=== PATIENT | male | born 1995 | race Caucasian/White ===

== ENCOUNTER 2016-10-22 13:09 | Inpatient (IN) | payer BC, OTHER ==
[~2016-10-22] VITALS: Ht 172.7 cm; Wt 65.8 kg
[2016-10-22 14:00] VITALS: BP 139/86
[2016-10-22] MEDS ORDERED: diphenhydrAMINE 50 MG CAPSULE PO PRN (14:30)
[2016-10-22] MEDS ORDERED: ONDANSETRON 4 MG/2 ML VIAL IM PRN (14:30)
[2016-10-22] MEDS ORDERED: ACETAMINOPHEN 325 MG TABLET PO PRN (14:30)
[2016-10-22] MEDS ORDERED: LOPERAMIDE HCL 2 MG CAPSULE PO PRN ×2 (14:30)
[2016-10-22] MEDS ORDERED: CLONIDINE HCL 0.1 MG TABLET PO PRN (14:30)
[2016-10-22] MEDS ORDERED: LORAZEPAM 2 MG/1 ML VIAL IM PRN (14:30)
[2016-10-22] MEDS ORDERED: MIRALAX 17 GM POWD.PACK PO PRN (14:30)
[2016-10-22] MEDS ORDERED: MAGNESIUM HYDROXIDE 30 ML LIQUID UDC PO PRN (14:30)
[2016-10-22] MEDS ORDERED: DICYCLOMINE HCL 20 MG TABLET PO PRN (14:30)
[2016-10-22] MEDS ORDERED: MAG HYDROX/AL HYDROX/SIMETH 30 ML LIQUID UDC PO PRN (14:30)
[2016-10-22] MEDS ORDERED: LORAZEPAM 1 MG TABLET PO PRN ×2 (14:30)
[2016-10-22] MEDS ORDERED: ONDANSETRON ODT 4 MG TAB.RAPDIS SL PRN (14:30)
[2016-10-22] MEDS ORDERED: IBUPROFEN 400 MG TABLET PO PRN (14:30)
[2016-10-22] MEDS ORDERED: HYDROXYZINE PAMOATE 25 MG CAPSULE PO PRN (14:30)
[2016-10-22 14:57] LABS: *AMPHETAMINE, URINE NEGATIVE (NEGATIVE); *BARBITURATE, URINE NEGATIVE (NEGATIVE); *CANNABINOID, URINE NEGATIVE (NEGATIVE); *COCCAINE, URINE NEGATIVE (NEGATIVE); *OPIATE, URINE NEGATIVE (NEGATIVE); *PHENCYCLIDINE SCREEN,URINE NEGATIVE (NEGATIVE)
[2016-10-22 15:15] LABS: BASOPHILS % (AUTO) 0.6 % (0.0-2.0); EOSINOPHILS % (AUTO) 0.6 % (0.0-7.0); HEMOGLOBIN 15.2 G/DL (14.0-18.0); LYMPHOCYTES # (AUTO) 0.9 K/UL (0.8-4.8); LYMPHOCYTES % (AUTO) 24.9 % (20.5-51.5); MEAN CORPUSCULAR HEMOGLOBIN 31.9 UUG (27.0-31.0); MEAN CORPUSCULAR HGB CONC 34 g/dL (32.0-37.0); MEAN CORPUSCULAR VOLUME 94.2 FL (82.0-92.0); MONOCYTES # (AUTO) 0.4 K/UL (0.1-1.30); MONOCYTES % (AUTO) 9.5 % (0.0-11.0); NEUTROPHILS # (AUTO) 2.5 K/UL (1.8-8.9); NEUTROPHILS % (AUTO) 64.4 % (38.5-71.5); PLATELET COUNT (AUTO) 133 K/UL (150-450); RED BLOOD CELL COUNT(AUTO) 4.77 MIL/UL (4.7-6.1); RED CELL DISTRIBUTION WIDTH 12.2 % (11.5-14.5); WHITE BLOOD COUNT (AUTO) 3.8 K/UL (4.0-11.2)
[2016-10-22] MEDS ORDERED: THIAMINE HCL 200 MG/2 ML VIAL IM ONE (15:19)
[2016-10-22 15:22] LABS: ETHANOL < 3 MG/DL (0-0)
[2016-10-22 15:28] LABS: ALANINE AMINOTRANSFERASE 69 U/L (16-63); ALBUMIN 4.6 g/dL (3.4-5.0); ALKALINE PHOSPHATASE 48 U/L (50-136); AMYLASE 72 U/L (25-115); ASPARTATE AMINOTRANSFERASE 32 U/L (15-37); BILIRUBIN,TOTAL 0.7 mg/dL (0.2-1.0); CALCIUM 9.2 mg/dL (8.5-10.1); CARBON DIOXIDE 30 mmol/L (21-32); CHLORIDE 102 mmol/L (98-107); CREATININE 0.8 mg/dL (0.6-1.3); GFR 121 mL/min (>60); GLUCOSE 87 mg/dL (74-106); LIPASE 183 U/L (73-393); MAGNESIUM 2.2 mg/dL (1.8-2.4); POTASSIUM 4.1 mmol/L (3.5-5.1); SODIUM SERUM 139 mmol/L (136-145); TOTAL PROTEIN, SERUM 7.7 g/dL (6.4-8.2); UREA NITROGEN, BLOOD 15 mg/dL (7-18)
[2016-10-22 15:38] LABS: THYROID STIMULATING HORMONE 1.293 mIU/mL (0.358-3.740)
[2016-10-22 16:55] VITALS: BP 119/61
[2016-10-22 19:03] LABS: HIV-1 p24 ANTIGEN NON REACTIVE (NONREACTIVE); HIV-1/2 ANTIBODY NON REACTIVE (NONREACTIVE)
[2016-10-22 20:00] VITALS: BP 142/81
[2016-10-23] VITALS: BP 138/60
[2016-10-23 04:00] VITALS: BP 131/64
[2016-10-23 08:00] VITALS: BP 123/63
[2016-10-23] MEDS: THIAMINE HCL 100 MG TABLET PO SCH (08:58)
[2016-10-23] MEDS: MULTIVITAMINS,THERAPEUTIC TABLET PO SCH (08:59)
[2016-10-23] MEDS: FOLIC ACID 1 MG TABLET PO SCH (08:59)
[2016-10-23] MEDS ORDERED: TUBERCULIN,PURIF.PROT.DERIV. 5 TU/0.1 ML TEST ID ONE (09:00)
[2016-10-23 12:00] VITALS: BP 119/62
[2016-10-23 14:06] LABS: HCV AB <0.1 s/co ratio (0.0-0.9); HEPATITIS B CORE AB, IgM Negative (Negative); HEPATITIS B SURFACE AG Negative (Negative)
[2016-10-23 17:02] VITALS: BP 133/78
[2016-10-23 20:35] VITALS: BP 142/78
[2016-10-24 00:45] VITALS: BP 139/59
[2016-10-24 04:34] VITALS: BP 125/71
[2016-10-24 08:00] VITALS: BP 131/64
[2016-10-24 08:32] LABS: BASOPHILS # (AUTO) 0.1 K/uL (0.0-8.0); EOSINOPHILS # (AUTO) 0.1 K/uL (0.0-0.7); EOSINOPHILS % (AUTO) 1.7 % (0.0-7.0); HEMATOCRIT 42.7 % (40-50); HEMOGLOBIN 14.6 G/DL (14.0-18.0); LYMPHOCYTES # (AUTO) 2.3 K/UL (0.8-4.8); LYMPHOCYTES % (AUTO) 45.5 % (20.5-51.5); MEAN CORPUSCULAR HEMOGLOBIN 32.4 UUG (27.0-31.0); MEAN CORPUSCULAR HGB CONC 34 g/dL (32.0-37.0); MEAN CORPUSCULAR VOLUME 94.9 FL (82.0-92.0); MONOCYTES # (AUTO) 0.5 K/UL (0.1-1.30); NEUTROPHILS # (AUTO) 2.2 K/UL (1.8-8.9); NEUTROPHILS % (AUTO) 41.8 % (38.5-71.5); PLATELET COUNT (AUTO) 136 K/UL (150-450); RED CELL DISTRIBUTION WIDTH 12.4 % (11.5-14.5); WHITE BLOOD COUNT (AUTO) 5.2 K/UL (4.0-11.2)
[2016-10-24 08:48] LABS: FOLIC ACID 15.3 NG/ML (8.6-58.9)
[2016-10-24 08:54] LABS: ALBUMIN 3.9 g/dL (3.4-5.0); BILIRUBIN,DIRECT 0.1 mg/dL (0.0-0.2); BILIRUBIN,TOTAL 0.3 mg/dL (0.2-1.0); CALCIUM 8.6 mg/dL (8.5-10.1); CREATININE 0.9 mg/dL (0.6-1.3); MAGNESIUM 2.1 mg/dL (1.8-2.4); POTASSIUM 4.1 mmol/L (3.5-5.1); TOTAL PROTEIN, SERUM 6.7 g/dL (6.4-8.2)
[2016-10-24] MEDS: FOLIC ACID 1 MG TABLET PO SCH (09:06)
[2016-10-24] MEDS: MULTIVITAMINS,THERAPEUTIC TABLET PO SCH (09:06)
[2016-10-24] MEDS: THIAMINE HCL 100 MG TABLET PO SCH (09:06)
[2016-10-24 12:00] VITALS: BP 128/68
[2016-10-24 14:42] LABS: *AMPHETAMINE, URINE NEGATIVE (NEGATIVE); *BARBITURATE, URINE NEGATIVE (NEGATIVE); *CANNABINOID, URINE NEGATIVE (NEGATIVE); *COCCAINE, URINE NEGATIVE (NEGATIVE); *OPIATE, URINE NEGATIVE (NEGATIVE); *PHENCYCLIDINE SCREEN,URINE NEGATIVE (NEGATIVE)
[2016-10-24 16:00] VITALS: BP 120/60
[2016-10-24 20:12] VITALS: BP 130/68
[2016-10-25 00:31] VITALS: BP 122/79
[2016-10-25 04:13] VITALS: BP 116/59
[2016-10-25 08:10] VITALS: BP 127/62
[2016-10-25] MEDS: FOLIC ACID 1 MG TABLET PO SCH (08:31)
[2016-10-25] MEDS: THIAMINE HCL 100 MG TABLET PO SCH (08:31)
[2016-10-25] MEDS: MULTIVITAMINS,THERAPEUTIC TABLET PO SCH (08:31)
== END 2016-10-25 09:35 | disposition other institution (70) | DRG 895 ==
LOC: SRC 13:09
PROVIDERS: ADMIT Internal Medicine; ATTEND Internal Medicine
PROC: HZ2ZZZZ Detoxification Services for Substance Abuse Treatment (ICD-10-PCS; principal; 2016-10-22)
PROC: HZ41ZZZ Group Counseling for Substance Abuse Treatment, Behavioral (ICD-10-PCS; 2016-10-23)
PROC: HZ31ZZZ Individual Counseling for Substance Abuse Treatment, Behavioral (ICD-10-PCS; 2016-10-23)
DX: F10.20 Alcohol dependence, uncomplicated (principal); K70.10 Alcoholic hepatitis without ascites; Y90.9 Presence of alcohol in blood, level not specified; Z81.1 Family history of alcohol abuse and dependence; Z82.49 Family history of ischemic heart disease and other diseases of the circulatory system; F17.210 Nicotine dependence, cigarettes, uncomplicated; E55.9 Vitamin D deficiency, unspecified; D75.89 Other specified diseases of blood and blood-forming organs; D69.6 Thrombocytopenia, unspecified; D72.819 Decreased white blood cell count, unspecified; F32.9 Major depressive disorder, single episode, unspecified
CPT/HCPCS: 36415; 70030-TC; 71010; 80307; 82306; 82746; 83690; 83735; 84443; 85025; 86592; 86705; 86803; 87340; 87806; A4663; G6040-TC; J3411